=== PATIENT | male | born 1990 | race Caucasian/White ===

== ENCOUNTER 2017-05-02 14:47 | Emergency (ER) | payer OTHER ==
[~2017-05-02] VITALS: Ht 185.4 cm; Wt 86.2 kg
[2017-05-02 14:47] VITALS: BP 140/94
[2017-05-02] MEDS ORDERED: SUCRALFATE SUSP 1GM/10ML UD PO ONE (16:00)
[2017-05-02] MEDS ORDERED: GI COCKTAIL 50ML BTL(HYOSCYAMINE/MAALOX/LIDOCAINE VISCOUS)(1:3:1) PO ONE (16:00)
[2017-05-02] MEDS ORDERED: SUCR1SS PO (16:18)
[2017-05-02] MEDS ORDERED: PROT1TAB2 PO (16:18)
== END 2017-05-02 16:28 | disposition home or self-care (01) ==
LOC: M ED 14:47
DX: K29.00 Acute gastritis without bleeding (principal); K21.9 Gastro-esophageal reflux disease without esophagitis

== ENCOUNTER 2017-07-25 23:25 | Emergency (ER) | payer OTHER ==
[~2017-07-25] VITALS: Ht 185.4 cm; Wt 89.9 kg
[~2017-07-25 23:25] MED LIST: PROT1TAB2 PO; SUCR1SS PO
[2017-07-25 23:26] VITALS: BP 133/78
[2017-07-26] MEDS ORDERED: KETOROLAC TROMETHAMINE 10 MG TAB PO ONE (00:30)
--- NOTE | 2017-07-26 01:14 | REP ---
Clinical: Pain . Technique: Internal rotation, external rotation, and Y view right shoulder . Findings: No acute fracture or dislocation. The acromioclavicular and glenohumeral joints are intact. No periarticular calcifications or degenerative changes are appreciated. Sub acromial space is normal. Surrounding soft tissues are unremarkable. Impression: Normal right shoulder radiographs. Signed by Yoav Arora MD 07/26/2017 01:06 A
== END 2017-07-26 01:32 | disposition home or self-care (01) ==
LOC: M ED 23:25
DX: M25.511 Pain in right shoulder (principal)